=== PATIENT | male | born 1950 | race Two or more races ===

== ENCOUNTER 2017-04-15 18:16 | Inpatient (IN) | payer MEDICARE, OTHER ==
[2017-04-15] MEDS: levETIRAcetam 500 MG TAB PO SCH (22:06)
[2017-04-15] MEDS: SODIUM CHLORIDE 0.9% 1,000 ML IV SCH (22:44)
[2017-04-16] MEDS ORDERED: RX INFO: IV CONTRAST WAS GIVEN 1 EACH MISC MISCELLANE PRN (06:14)
[2017-04-16] MEDS ORDERED: ASPIRIN 81 MG CHEW PO SCH (06:18)
--- NOTE | 2017-04-16 07:46 | HP ---
DATE OF ADMISSION: 04/15/2017 PRESENTING COMPLAINT: Weakness in the arms and leg. HISTORY OF PRESENTING COMPLAINT: This is a 66-year-old patient who I saw yesterday evening in 403 bed 2. The patient was transferred from [facility] where he was found to have hemoglobin of 7.2. The patient has a chronic stable medical conditions include hypertension, seizure, osteoarthritis, the patient states that for over about close to about the patient has become weak and decreased feeling in the left leg, ( ) in the right leg. Also patient has decreased feeling in the right arm. He has been using a walker. He has been getting progressively weak. Denies any pain, denies any change in speech or swallowing. Patient also hemoglobin was found to be low and the patient does not remember any black stools. Hence the patient was transferred here for further work-up. The patient also lost control of his bowels and also lost weight from 154 to 143 in the past month. REVIEW OF SYSTEMS: CONSTITUTIONAL: Tired. HEENT: None. RESPIRATORY: None. CARDIOVASCULAR: No chest pain. GASTROINTESTINAL: None. GENITOURINARY: Some stress incontinence. Dermatological: None. HEMATOLOGICAL: None. LYMPHATICS: None. PSYCHIATRY: None. NEUROLOGICAL: As above. Past history of hypertension, seizures, osteoarthritis. PAST SURGICAL HISTORY: No surgery. SOCIAL HISTORY: The patient is living with his landlord, not able to take care of himself. 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 Patient for close to 50 years has smoked about a pack a day and now down to a few cigarettes a day. Does drink about 4 or 5 beers a day. Family history of angina and hypertension. HOME MEDICATIONS: 1. Catapres 0.1 mg a day. 2. Triamcinolone 2 sprays each nostril daily. 3. Zestril 20 mg p.o. daily. 4. Keppra 500 milligrams p.o. t.i.d. ALLERGIES: None. On examination, temperature 99.6, pulse 98, respirations 16, blood pressure 111/58, pulse ox 97% on room air. GENERAL APPEARANCE: Average build, sitting up, tired appearing. EYES: Pupils equal. Conjunctivae normal. HEENT: External appearance of nose and ears normal. Oral cavity normal. NECK: JVD is not raised. Mass not palpable. RESPIRATORY: Effort normal. LUNGS: Diminished breath sounds. CARDIOVASCULAR: First and second sounds normal. No edema. ABDOMEN: Soft, nontender. Liver and spleen not palpable. LYMPHATIC: No lymph nodes palpable in neck or axillae. PSYCHIATRY: Alert and oriented x3. Mood is normal. NEUROLOGICAL: The patient's power on the left leg is about 1/5. Reflexes increased compared to the right. On the right leg he is about 2.5. The patient slightly weak in the right arm compared to the left. MUSCULOSKELETAL: Evidence of osteoarthritis in the hands and knees. INVESTIGATIONS: Blood work will be sent off for CMV, CBC, TSH. ASSESSMENT: 1. This is a patient who presents with weakness over one month with weakness in the left leg and some weakness in right leg, right arm weakness. This could be cervical pathology or something more central. Hence, we will need a CT scan of the brain and the neck. 2. Essential hypertension. The patient blood pressure is running on the low side. We will stop patient's clonidine and cut back the dose of Vasotec. 3. Seizure disorder in a patient who drinks alcohol. 4. Primary osteoarthritis in multiple joints, bilateral. The patient has evidence of the same on physical examination. 5. Chronic nicotine dependence. Patient is a smoker. 6. Chronic alcohol dependence. Patient drinks at least 4 to 5 beers a day. PLAN: The patient will get a CT scan of the brain and the neck. We will consult neurology. For the ( ), we will consult GI, with a view to endoscopy. The patient was given a nicotine patch. Will do a chest x-ray. Also will check patient's thyroid status. Get transition social worker involved including PT/OT. Care was discussed with the patient. Copy to Dr. Suarez.
[2017-04-16] MEDS: LISINOPRIL 20 MG TAB PO SCH (08:23)
[2017-04-16] MEDS: levETIRAcetam 500 MG TAB PO SCH ×2 (08:23→23:47)
[2017-04-16] MEDS: FLUTICASONE 50MCG/SPRAY NASAL 16GM EA NOSTRIL SCH (08:24)
[2017-04-16] MEDS: SODIUM CHLORIDE 0.9% 1,000 ML IV SCH ×2 (08:24→17:52)
[2017-04-16] MEDS: ASPIRIN 81 MG CHEW PO SCH (08:24)
[2017-04-16] MEDS: ENOXAPARIN 40 MG/0.4 ML SYRINGE SQ SCH (08:24)
[2017-04-16] MEDS: NICOTINE 14MG/24HR PATCH TRANSDERM SCH (08:24)
[2017-04-16 08:48] LABS: Anisocytosis Slight; Basophils % (A) 0 %; CH 20.3; CHCM 29.9; Eosinophils % (A) 0 %; HCT 23.6 % (39.0-53.0); HDW 3.28; Hypochromasia Marked; Luc # (Auto) 0.16; Luc % (Auto) 1; Lymphocytes # (A) 0.7 k/uL (1.0-4.8); Lymphocytes % (A) 3 %; MCH 20.4 pg (25.0-35.0); MCHC 29.8 g/dL (31.0-37.0); MCV 68.4 fL (80.0-100.0); Mean Platelet Volume 6.9; Microcytosis Marked; Monocytes # (A) 0.6 k/uL (0-1.0); Monocytes % (A) 2 %; Neutrophils # (A) 23.2 k/uL (1.3-7.7); Neutrophils % (A) 94 %; RBC 3.45 m/uL (4.30-5.90); RDW 19.3 % (11.5-15.5); WBC 24.7 k/uL (3.8-10.6)
[2017-04-16] MEDS ORDERED: cloNIDine HCL 0.1 MG TAB PO SCH (09:00)
[2017-04-16 09:12] LABS: ALT 18 U/L (21-72); AST 15 U/L (17-59); Alkaline Phosphatase 118 U/L (38-126); Anion Gap 12 mmol/L; Blood Urea Nitrogen 7 mg/dL (9-20); Calcium 7.5 mg/dL (8.4-10.2); Carbon Dioxide 21 mmol/L (22-30); Chloride 98 mmol/L (98-107); Cholesterol 104 mg/dL (<200); Glucose 66 mg/dL (74-99); HDL Cholesterol 27 mg/dL (40-60); Non-African American GFR(MDRD) >60 (>60 ml/min/1.73 sqM); Potassium 3.1 mmol/L (3.5-5.1); Sodium 131 mmol/L (137-145); Total Bilirubin 0.8 mg/dL (0.2-1.3); Total Protein 5.3 g/dL (6.3-8.2); Triglycerides 81 mg/dL (<150)
--- NOTE | 2017-04-16 09:21 | P.CONS ---
History of Present Illness - Reason for Consult Consult date: 04/16/17 anemia Requesting physician: Refugio Aly - History of Present Illness 66-year-old gentleman patient of Dr. Suarez with a past medical history of EtOH abuse and still drinks alcohol daily, seizure disorder, hypertension, nicotine cigarette dependency. Patient requested for anemia. Patient was transferred from [facility] with 2-3 day history of lower leg weakness unable to walk. "I cannot take care of myself anymore". Patient has defecated brown colored stool on himself but not incontinent of urine. Denies fever, chills. Denies overt bleeding such as hematemesis hematochezia or melena. Chemistries from [facility] upon transfer indicated white count 26. Hemoglobin 7.3. MCV 65. Platelets 540. He went 9. Creatinine 0.7. AST 21. ALT 37. Alkaline phosphatase 120. Total bilirubin 0.7. Albumin 2.5. Ammonia less than 9. TSH 3.4. Folate 4.3. B12 855. INR 1.1. Upon review of medical records July 2016 hemoglobin 13.9. MCV 87. Denies abdominal pain, nausea, vomiting. Reports weight loss over the last few months but cannot quantify it at least 10 pounds. Present weight 55 kg. Weight July 2016 65 kilograms. Possible history of colonoscopy in the past if so more than 10 years ago. No history of EGD. CT brain cervical spine pending. Review of Systems Constitutional: Denies fever, chills, sweats, weight gain, or loss. HEENT: Negative for migraines, blurred vision or loss, earaches, drainage, tinnitus, oral mucosal lesions, dysphagia, or odynophagia. Cardiac: Hypertension. Negative for chest pain, arrhythmias, or palpitation. Respiratory: Negative for shortness of breath, hemoptysis, cough, or sputum production. Gastrointestinal: See HPI for pertinent findings. Genitourinary: Negative for hematuria, urgency, frequency, polyuria, dysuria, or penile discharge. Musculoskeletal: Negative for muscle aches, swelling, arthritis, and arthralgias. Neurologic: seizure disorder. Negative for stroke or TIA. Endocrine: Negative for thyroid problems. Skin: Negative for rash or itching. Psychiatric: Negative history for depression and anxiety All systems: negative (See HPI) Past Medical History Past Medical History: Hypertension, Seizure Disorder Additional Past Medical History / Comment(s): Seizures. PT STATED FOR PAST MONTH NO FEELING LT LEG(IT WOULD GO OUT ON HIM" NO FEELING RT ARM, LOST BOWEL CONTROL. WT DOWN FROM 154 TO 143 IN PAST MONTH. PT IS RT HAND DOMINANT. History of Any Multi-Drug Resistant Organisms: None Reported Additional Past Surgical History / Comment(s): "nose surgery" pt does not recall what surgery or why. Past Anesthesia/Blood Transfusion Reactions: No Reported Reaction Smoking Status: Current every day smoker - Past Family History Father Family Medical History: Chest Pain / Angina, Hypertension Mother Family Medical History: GERD/Reflux, GI Bleed Medications and Allergies Home Medications Medication Instructions Recorded Confirmed Type Lisinopril [Zestril] 20 mg PO DAILY 04/15/17 04/15/17 History Triamcinolone Acetonide [Nasacort] 2 spray EA NOSTRIL DAILY 04/15/17 04/15/17 History cloNIDine HCL [Catapres] 0.1 mg PO DAILY 04/15/17 04/15/17 History levETIRAcetam [Keppra] 500 mg PO BID 04/15/17 04/15/17 History Allergies Allergy/AdvReac Type Severity Reaction Status Date / Time No Known Allergies Allergy Verified 04/15/17 20:10 Physical Exam Vitals: Vital Signs Temp Pulse Resp BP Pulse Ox 04/16/17 07:00 99.9 F H 110 H 20 148/69 90 L 04/15/17 23:00 100.3 F H 94 16 107/51 94 L 04/15/17 20:00 100 04/15/17 19:28 99.6 F 98 16 111/58 97 Intake and Output 04/15/17 04/16/17 04/16/17 22:59 06:59 14:59 Output Total 200 525 Balance -200 -525 Output: Urine 200 525 Other: Voiding Method Urinal # Voids 1 2 Weight 55.5 kg General appearance: The patient is alert, oriented, in no acute distress. HET: Head is normocephalic and atraumatic. Pupils are equal and reactive. Oropharynx is clear without lesions. Neck: Supple without lymphadenopathy. Trachea midline. Heart: S1 S2. Regular rate and rhythm. Lungs: No crackles or wheezes are heard. Abdomen: Soft, nontender, nondistended with bowel sounds. No peritoneal signs. No palpable organomegaly or masses. Extremities: Normal skin color and turgor. No cyanosis, rash, ulceration, clubbing, or edema. Radial and pedal pulses are 2/4 bilaterally. Neurological: Moves lower extremities but poor strength 2/5 bilaterally. no edema. Rectal: Brown stool. No palpable masses. No active bleeding. Results CBC & Chem 7: 04/17/17 07:49 04/17/17 07:49 Assessment and Plan (1) Microcytic hypochromic anemia Narrative/Plan: 56-year-old gentleman with a history of long-standing alcoholism and seizure disorder presents the 2-3 day history of bilateral lower leg weakness unable to walk with new onset of microcytic hypochromic anemia suggestive of iron deficiency without overt bleeding. Status: Acute (2) History of alcoholism Status: Chronic (3) Lower extremity weakness Status: Acute (4) Seizures Status: Acute Plan: 1. Iron indices. Reticulocyte count. 2. Will plan EGD colonoscopy tentatively after review of CT had spinal cord neurology evaluation. 3. Light diet as tolerated. Monitor CBC closely. 4. Will follow closely with you. The cardio tech has discussed the risks, benefits and alternative therapies for the above-mentioned procedure and for both sedation/analgesia as well as necessary blood product administration, if indicated, as they pertain to this patient. The patient has indicated understanding and acceptance of the risks and procedures discussed. Thank you for this kind referral and the opportunity to participate in the care of your patient. This consultation was discussed with after Nasr. The impression and plan of care have been directed as dictated.
--- NOTE | 2017-04-16 10:20 | ECHOF ---
Referral Reason:poss thrombus MEASUREMENTS -------- HEIGHT: 167.6 cm WEIGHT: 55.3 kg BP: 107/51 IVSd: 1.6 cm (0.6 - 1.1) LVIDd: 3.1 cm (3.9 - 5.3) LVPWd: 1.0 cm (0.6 - 1.1) IVSs: 1.6 cm LVIDs: 1.4 cm LVPWs: 1.6 cm Ao Diam: 3.3 cm (2.0 - 3.7) AV Cusp: 1.9 cm (1.5 - 2.6) LA Diam: 3.2 cm (2.7 - 3.8) MV EXCURSION: 14.230 mm (> 18.000) MV EF SLOPE: 55 mm/s (70 - 150) EPSS: 0.2 cm MV E Brant: 1.04 m/s MV DecT: 98 ms MV A Brant: 1.02 m/s MV E/A Ratio: 1.02 RAP: 5.00 mmHg RVSP: 41.02 mmHg FINDINGS -------- Resting tachycardia (HR>100bpm). This was a technically good study. Overall left ventricular systolic function is normal with, an EF between 55 - 60 %. Mild asymmetric septal hypertrophy with septal thickness 1.3 - 1.5 cm. LVOT Obstruction with a max gradient of 22mmHg The right ventricle is normal in size and function. The left atrium is normal in size. The right atrium is normal in size. Aortic valve is trileaflet and is mildly thickened. The mitral valve leaflets are mildly thickened. There is trace mitral regurgitation. Mild tricuspid regurgitation present. There is mild pulmonary hypertension. The right ventricular systolic pressure, as measured by Doppler, is 41.02mmHg. Pulmonic valve appears structurally normal. The aortic root size is normal. Normal inferior vena cava with normal inspiratory collapse consistent with estimated right atrial pressure of 5 mmHg. The pericardium is normal. CONCLUSIONS -------- 1. Resting tachycardia (HR>100bpm). 2. The mitral valve leaflets are mildly thickened. 3. There is trace mitral regurgitation. 4. Mild tricuspid regurgitation present. 5. There is mild pulmonary hypertension. 6. The right ventricular systolic pressure, as measured by Doppler, is 41.02mmHg. 7. Pulmonic valve appears structurally normal. 8. The aortic root size is normal. 9. Normal inferior vena cava with normal inspiratory collapse consistent with estimated right atrial pressure of 5 mmHg. 10. The pericardium is normal. 11. This was a technically good study. 12. Overall left ventricular systolic function is normal with, an EF between 55 - 60 %. 13. Mild asymmetric septal hypertrophy with septal thickness 1.3 - 1.5 cm. 14. LVOT Obstruction with a max gradient of 22mmHg 15. The right ventricle is normal in size and function. 16. The left atrium is normal in size. 17. The right atrium is normal in size. 18. Aortic valve is trileaflet and is mildly thickened. GLOBAL MARKETING COORDINATOR: Shelly Mays RDCS
[2017-04-16 11:34] VITALS: BMI 19.7
--- NOTE | 2017-04-16 12:36 | US ---
EXAMINATION TYPE: US carotid duplex BILAT DATE OF EXAM: 04/16/2017 COMPARISON: NONE CLINICAL HISTORY: arm and leg weakness. EXAM MEASUREMENTS: RIGHT: Peak Systolic Velocity (PSV) cm/sec ----- Right CCA: 119.4 ----- Right ICA: 122.2 ----- Right ECA: 91.4 ICA/CCA ratio: 1.0 RIGHT: End Diastole cm/sec ----- Right CCA: 14.7 ----- Right ICA: 13.7 ----- Right ECA: 0.0 LEFT: Peak Systolic Velocity (PSV) cm/sec ----- Left CCA: 88.0 ----- Left ICA: 99.5 ----- Left ECA: 109.4 ICA/CCA ratio: 1.1 LEFT: End Diastole cm/sec ----- Left CCA: 8.9 ----- Left ICA: 27.4 ----- Left ECA: 0.0 VERTEBRALS (direction of flow): Right Vertebral: Antegrade Left Vertebral: Antegrade Severe atherosclerotic changes seen bilaterally, no significant velocity increases seen in bilateral ICA's IMPRESSION: No hemodynamic significant stenosis of the proximal internal carotid arteries bilaterall y by Doppler criteria, and indirect measurement of carotid stenosis. Atheromatous changes are present within the carotid arteries bilaterally. Consider follow-up.
[2017-04-16 14:21] LABS: Reticulocyte % 3.3 % (0.5-2.0)
[2017-04-16 14:45] LABS: Iron <10 ug/dL (49-181)
[2017-04-16 14:54] LABS: % Iron Saturation <5.1 % (20-50); Total Iron Binding Capacity 195 ug/dL (261-462)
--- NOTE | 2017-04-16 15:25 | CT ---
EXAMINATION TYPE: CT brain w con DATE OF EXAM: 04/16/2017 COMPARISON: Previous CT scan of the brain dated 04/15/2017 HISTORY: Right arm and left leg weakness for [address] DLP: 1012.70 mGycm Automated exposure control for dose reduction was used. CONTRAST: CT scan of the head is performed with IV Contrast, patient injected with 100 ml mL of Omnipaque 300. FINDINGS: There are mild, generalized changes of sulcal prominence and ventriculomegaly, compatible w ith atrophic change. There is mild diffuse periventricular white matter lucency, compatible with smal l vessel ischemic change. There is no acute focal lesion, mass effect or midline shift identified. I do not see evidence of intracranial blood. No abnormal enhancement is seen. There is chronic mucoperiosteal thickening involving the left maxillary sinus and to a lesser extent the right maxillary sinus. The mastoid air cells are clear. IMPRESSION: 1. NO ACUTE INTRACRANIAL ABNORMALITY. 2. MILD ATROPHIC CHANGE. 3. CHRONIC WHITE MATTER ISCHEMIC CHANGE. 4. MILD, CHRONIC MAXILLARY SINUS MUCOSAL DISEASE.
--- NOTE | 2017-04-16 15:48 | CT ---
EXAMINATION TYPE: CT cervical spine wo/w con DATE OF EXAM: 04/16/2017 COMPARISON: Previous exam 08/24/2016 HISTORY: Right arm and left leg weakness for [address] DLP: 537.00 mGycm. Automated Exposure Control for Dose Reduction was Utilized. TECHNIQUE: CT scan of the cervical spine is obtained without and with contrast, axial images are obt ained, sagittal and coronal reformatted images are also reviewed. FINDINGS: Cervical spine is visualized in its entirety from C1 through upper thoracic levels, demonst rates no evident fracture. There is anterolisthesis grade 1 C3-4, retrolisthesis grade 1 C4-5, C5-6 a nd C6-7. There is a spinal curvature. Prevertebral soft tissue appears within normal limits. The C1 -C2 articulation is within normal limits on the coronal images. Review of axial images shows: Multilevel spondylosis and loss of disc height present. C2-3: Left-sided foraminal encroachment is present. No significant central canal stenosis. Minimal po sterior broad-based disc bulge C3-4: Listhesis may contribute to cause some foraminal encroachment greater on the left, mild central canal stenosis. C4-5: Foraminal encroachment is present bilaterally right greater than left. Mild central canal steno sis. C5-6: Bilateral foraminal encroachment is significant due to uncovertebral joint hypertrophy and face t arthropathy change. Mild to moderate central stenosis. C6-7: Foraminal encroachment is present bilaterally. No significant central stenosis. There is multil evel facet arthropathy. MRIs of increased sensitivity to assess for disc herniations. Thyroid gland is felt within normal limits. Visualized lung apices are remarkable for extensive emphy sematous change. Atheromatous changes are present at the carotid bifurcations. Significant stenosis is thought present of the proximal internal carotid artery on the left. Inflammatory changes are present within the max illary sinuses. IMPRESSION: There is no acute fracture or dislocation evident in the cervical spine. Multilevel akilah inal encroachment, degenerative disc disease, facet arthropathy. Hemodynamic significant stenosis of the proximal internal carotid artery on the left is suspected. Emphysema
[2017-04-16] MEDS ORDERED: Potassium Replacement Protocol 1 EACH MISC MISCELLANE PRN (17:54)
[2017-04-16] MEDS: POTASSIUM CHLORIDE ER 20 MEQ TAB.ER PO SCH ×2 (18:14→20:36)
--- NOTE | 2017-04-16 22:07 | P.CNNES ---
History of Present Illness Consult date: 04/16/17 History of Present Illness: The patient is a 66-year-old right-handed male with history of weakness and difficulty walking. He reports that one week ago he fell and injured his right arm and since then he has had weakness in the right arm. He also experienced some bilateral leg weakness which got worse 4 days ago when he stood up from lying in bed and collapsed because both legs were weak. He did not come to the emergency room immediately but he didn't present to [place] emergency room today and was transferred to [facility]. At [facility] emergency room he had a CT of the brain which showed no acute intracranial abnormality mild atrophy and chronic white matter ischemic changes. The patient denies any numbness in his arms or legs. He denied any neck pain or back pain. His main complaint is inability to walk for the past 4 days and recurrent falls. He also complains of weakness in the right arm since he fell on it one week ago. The patient had a CT of the cervical spine today did not reveal any fracture or acute disc herniation. There was degenerative disc disease. Patient was admitted to the hospital with anemia. His hemoglobin was 7.2 areas as had a weight loss of over 10 pounds in the past month. As a history of alcohol abuse and seizure disorder. Review of Systems Constitutional: Reports as per HPI Eyes: denies blurred vision, denies pain Ears, nose, mouth and throat: Reports as per HPI Cardiovascular: Denies chest pain, Denies shortness of breath Respiratory: Denies cough Gastrointestinal: Denies abdominal pain, Denies diarrhea, Denies nausea, Denies vomiting Musculoskeletal: Denies myalgias Integumentary: Denies pruritus, Denies rash Neurological: Denies numbness, Denies weakness Psychiatric: Denies anxiety, Denies depression Endocrine: Denies fatigue, Denies weight change (Weight loss) Past Medical History Past Medical History: Hypertension, Seizure Disorder Additional Past Medical History / Comment(s): Seizures. PT STATED FOR PAST MONTH NO FEELING LT LEG(IT WOULD GO OUT ON HIM" NO FEELING RT ARM, LOST BOWEL CONTROL. WT DOWN FROM 154 TO 143 IN PAST MONTH. PT IS RT HAND DOMINANT. History of Any Multi-Drug Resistant Organisms: None Reported Additional Past Surgical History / Comment(s): "nose surgery" pt does not recall what surgery or why. Past Anesthesia/Blood Transfusion Reactions: No Reported Reaction Smoking Status: Current every day smoker - Past Family History Father Family Medical History: Chest Pain / Angina, Hypertension Mother Family Medical History: GERD/Reflux, GI Bleed Medications and Allergies Home Medications Medication Instructions Recorded Confirmed Type Lisinopril [Zestril] 20 mg PO DAILY 04/15/17 04/15/17 History Triamcinolone Acetonide [Nasacort] 2 spray EA NOSTRIL DAILY 04/15/17 04/15/17 History cloNIDine HCL [Catapres] 0.1 mg PO DAILY 04/15/17 04/15/17 History levETIRAcetam [Keppra] 500 mg PO BID 04/15/17 04/15/17 History Allergies Allergy/AdvReac Type Severity Reaction Status Date / Time No Known Allergies Allergy Verified 04/15/17 20:10 Physical Examination - Vital Signs Vital Signs: Vital Signs Temp Pulse Resp BP Pulse Ox 04/16/17 21:21 101.7 F H 04/16/17 15:37 20 04/16/17 15:00 99.3 F 90 20 131/64 95 04/16/17 07:00 99.9 F H 110 H 20 148/69 90 L 04/15/17 23:00 100.3 F H 94 16 107/51 94 L Intake and Output 04/16/17 04/16/17 04/16/17 06:59 14:59 22:59 Output Total 525 Balance -525 Output: Urine 525 Other: # Voids 2 1 Weight 55.5 kg Patient Weight 04/17/17 06:59 Weight 55.5 kg - Constitutional General appearance: disheveled, thin - EENT EENT: hearing intact, vision intact - Respiratory Respiratory: rales - Cardiovascular Cardiovascular: regular rate, normal S1, normal S2 - Neurologic Cranial nerve examination: PERRL, EOMI, VFF, V1/V2/V3 grossly intact, face symmetric, tongue midline Speech examination: intact Motor examination - right side: 1/5: hip flexors, knee extensors, 3/5: biceps, triceps, wrist flexion, wrist extension, dish stacker Motor examination - left side: 3/5: biceps, hip flexors, knee extensors, 4/5: triceps, wrist flexion, wrist extension Detailed sensory examination: intact, light touch Reflexes: 2+: bicep, knee - Musculoskeletal Musculoskeletal: decreased range of motion - Psychiatric Psychiatric: depressed Results - Laboratory Findings CBC and BMP: 04/16/17 08:14 04/16/17 08:14 Abnormal Lab Findings: Abnormal Labs 04/16/17 04/16/17 04/16/17 08:14 08:14 08:14 WBC 24.7 H RBC 3.45 L Hgb 7.0 L* Hct 23.6 L MCV 68.4 L MCH 20.4 L MCHC 29.8 L RDW 19.3 H Plt Count 515 H Neutrophils # 23.2 H Lymphocytes # 0.7 L Retic Count Sodium 131 L Potassium 3.1 L Carbon Dioxide 21 L BUN 7 L Creatinine 0.57 L Glucose 66 L Calcium 7.5 L Iron <10 L TIBC 195 L % Saturation <5.1 L AST 15 L ALT 18 L Total Protein 5.3 L Albumin 2.2 L HDL Cholesterol 27 L 04/16/17 08:14 WBC RBC Hgb Hct MCV MCH MCHC RDW Plt Count Neutrophils # Lymphocytes # Retic Count 3.3 H Sodium Potassium Carbon Dioxide BUN Creatinine Glucose Calcium Iron TIBC % Saturation AST ALT Total Protein Albumin HDL Cholesterol Assessment and Plan (1) Lower extremity weakness Status: Acute Code(s): R29.898 - OTH SYMPTOMS AND SIGNS INVOLVING THE MUSCULOSKELETAL SYSTEM (2) Microcytic hypochromic anemia Status: Acute Code(s): D50.9 - IRON DEFICIENCY ANEMIA, UNSPECIFIED (3) Alcohol abuse Status: Chronic Code(s): F10.10 - ALCOHOL ABUSE, UNCOMPLICATED (4) History of seizure disorder Status: Chronic Code(s): Z86.69 - PERSONAL HISTORY OF DIS OF THE NERVOUS SYS AND SENSE ORGANS (5) History of alcoholism Status: Chronic Code(s): F10.21 - ALCOHOL DEPENDENCE, IN REMISSION Plan: The patient is a 66-year-old man with history of subacute onset weakness in the legs after suffering a few falls. His CT of the brain and CT of the cervical spine were unremarkable. Recommend further evaluation with MRI of the cervical and lumbar spine. He is complaining of pain in the right shoulder and right knee we'll check x-rays. He has a history of seizure disorder. Will check Keppra level and EEG
[2017-04-16] MEDS: ACETAMINOPHEN TAB 325 MG TAB PO PRN (22:55)
--- NOTE | 2017-04-16 22:59 | P.PN ---
Progress Note - Text DATE OF SERVICE: 04/16/2017 PRESENTING COMPLAINT: Weakness in the arms and legs INTERVAL HISTORY: 66-year-old gentleman with weakness in the left leg and right leg and right arm. Continues to have weakness of said extremities. Sitting up in bed, eating his dinner. Appears comfortable. REVIEW OF SYSTEMS: Done for constitutional ,cardiovascular, GI, pulmonary with relevant findings as above. CURRENT MEDICATIONS Aspirin, Lovenox, Keppra, Zestril, nicotine patch. PHYSICAL EXAM VITAL SIGNS: Temperature 99.9 heart rate 110 respiratory rate 20 blood pressure 148/69 GENERAL APPEARANCE: Sitting in bed, not in distress. EYES: Pupils equal. Conjunctiva normal. NECK: JVD not raised. Mass not palpable. RESPIRATORY: Respiratory effort normal. Lungs clear to auscultation. CARDIOVASCULAR: First and second sounds normal. No edema. ABDOMEN: Soft. Liver and spleen not palpable. No tenderness. No mass palpable. PSYCHIATRY: Alert and oriented x3. Mood and affect normal. INVESTIGATIONS: White blood cell count 24.7, hemoglobin 7.0, platelet count 5:15, sodium 131, potassium 3.1, BUN 7 creatinine 0.57, total bilirubin 0.8, AST [address] of the brain :No acute intercranial abnormality CT of the cervical spine: No acute fracture dislocation evident in the cervical spine. Multilevel foraminal encroachment degenerative disc disease and facet arthropathy. Hemodynamic significant stenosis of the proximal internal carotid on the left is suspected. Carotid Doppler: No significant stenosis of the proximal internal carotid arteries bilaterally. ASSESSMENT: Weakness to left leg, right leg right arm. Unknown etiology possibly cervical pathology or more central, all imaging negative for an acute process Essential hypertension. Seizure disorder in a patient who drinks alcohol. Primary osteoarthritis of multiple joints bilateral. Chronic nicotine dependence patient is a smoker. Chronic alcohol dependence patient drinks at least 4-5 beers a day. Anemia secondary to alcohol use, hemoglobin 7.0 PLAN: We'll proceed with evaluation of an MRI of the cervical lumbar spine per neurology. Follow up on patient's thyroid status, iron studies, possible EGD with colonoscopy on Saturday. Discussed plan of care with patient at bedside. We'll follow closely. COLD MEAT CHEF statement: Patient was seen and examined by nurse practitioner Yudith Mendes and all elements of the case discussed with attending Dr. Aly
[2017-04-17] MEDS: SODIUM CHLORIDE 0.9% 1,000 ML IV SCH ×2 (06:33→15:02)
[2017-04-17] MEDS: LISINOPRIL 20 MG TAB PO SCH (07:57)
[2017-04-17] MEDS: levETIRAcetam 500 MG TAB PO SCH ×2 (07:57→21:51)
[2017-04-17] MEDS: NICOTINE 14MG/24HR PATCH TRANSDERM SCH (07:57)
--- NOTE | 2017-04-17 07:57 | XR ---
EXAMINATION TYPE: XR orbit pre-MRI foreign body DATE OF EXAM: 04/17/2017 COMPARISON: NONE HISTORY: Pre-MRI orbit TECHNIQUE: Three-view orbits FINDINGS: No metallic foreign bodies in or about the orbits is evident. Some mucosal thickening withi n the maxillary sinuses may be present. Septum appears midline. IMPRESSION: 1. No metallic foreign body to contraindicate MRI in or about the orbits.
[2017-04-17] MEDS: FLUTICASONE 50MCG/SPRAY NASAL 16GM EA NOSTRIL SCH (07:58)
[2017-04-17] MEDS: ENOXAPARIN 40 MG/0.4 ML SYRINGE SQ SCH (07:58)
[2017-04-17] MEDS: ASPIRIN 81 MG CHEW PO SCH (07:58)
--- NOTE | 2017-04-17 07:58 | XR ---
EXAMINATION TYPE: XR knee complete RT DATE OF EXAM: 04/17/2017 COMPARISON: NONE HISTORY: Pain and swelling right knee TECHNIQUE: Three-view right knee FINDINGS: There is a moderate joint effusion. No acute fractures are evident. Joint spaces are preser charanjit. IMPRESSION: 1. Moderate joint effusion.
--- NOTE | 2017-04-17 07:59 | XR ---
EXAMINATION TYPE: XR shoulder complete RT DATE OF EXAM: 04/17/2017 COMPARISON: NONE HISTORY: Pain TECHNIQUE: Shoulder examined in 3 FINDINGS: The humeral head articulates with the glenoid. The acromio-clavicular junction is normal. No acute fractures or dislocations are evident. A follow up study can be performed 7-10 days from acute trauma for continued pain. IMPRESSION: 1. Normal Shoulder
[2017-04-17 08:28] LABS: Anisocytosis Slight; Basophils % (A) 0 %; CH 20.4; CHCM 29.4; Eosinophils % (A) 0 %; HCT 25.3 % (39.0-53.0); HDW 3.32; HGB 7.3 gm/dL (13.0-17.5); Hypochromasia Marked; Luc # (Auto) 0.17; Luc % (Auto) 1; Lymphocytes # (A) 0.9 k/uL (1.0-4.8); Lymphocytes % (A) 4 %; MCH 20.1 pg (25.0-35.0); MCHC 28.8 g/dL (31.0-37.0); MCV 69.8 fL (80.0-100.0); Mean Platelet Volume 6.7; Microcytosis Marked; Monocytes # (A) 0.5 k/uL (0-1.0); Monocytes % (A) 2 %; Neutrophils % (A) 93 %; RBC 3.63 m/uL (4.30-5.90); RDW 19.5 % (11.5-15.5); WBC 22.6 k/uL (3.8-10.6); WBC (Perox) 23.09
[2017-04-17 08:44] LABS: ALT 22 U/L (21-72); AST 16 U/L (17-59); Alkaline Phosphatase 134 U/L (38-126); Anion Gap 9 mmol/L; Blood Urea Nitrogen 6 mg/dL (9-20); Calcium 7.6 mg/dL (8.4-10.2); Carbon Dioxide 24 mmol/L (22-30); Chloride 100 mmol/L (98-107); Glucose 94 mg/dL (74-99); Non-African American GFR(MDRD) >60 (>60 ml/min/1.73 sqM); Potassium 3.5 mmol/L (3.5-5.1); Sodium 133 mmol/L (137-145); Total Bilirubin 0.8 mg/dL (0.2-1.3); Total Protein 5.6 g/dL (6.3-8.2)
[2017-04-17] MEDS ORDERED: Potassium Replacement Protocol 1 EACH MISC MISCELLANE PRN (11:08)
--- NOTE | 2017-04-17 11:12 | P.PN ---
Subjective Principal diagnosis: Anemia 66-year-old male transferred from [facility] with lower extremity weakness unable to walk with incidental anemia. History of EtOH abuse. CT brain cervical spine reported no acute fracture or dislocation. No acute intracranial abnormality. No evidence of bleeding such as hematemesis hematochezia or melena. Denies abdominal pain. Hemoglobin 7.3. Objective - Vital Signs Vital signs: Vital Signs Temp 97.6 F 04/17/17 07:00 Pulse 90 04/17/17 07:00 Resp 24 04/17/17 07:00 BP 141/74 04/17/17 07:00 Pulse Ox 94 L 04/17/17 07:00 Intake & Output 04/16/17 04/17/17 04/17/17 18:59 06:59 18:59 Intake Total 625 Output Total 1000 Balance -375 Weight 55.5 kg Intake: Oral 625 Output: Urine 1000 Other: Voiding Method Urinal Urinal Incontinent Incontinent # Voids 1 2 - Exam General appearance: The patient is alert, oriented, in no acute distress. HET: Head is normocephalic and atraumatic. Pupils are equal and reactive. Oropharynx is clear without lesions. Neck: Supple without lymphadenopathy. Trachea midline. Heart: S1 S2. Regular rate and rhythm. Lungs: No crackles or wheezes are heard. Abdomen: Soft, nontender, nondistended with bowel sounds. No peritoneal signs. No palpable organomegaly or masses. Extremities: Normal skin color and turgor. No cyanosis, rash, ulceration, clubbing, or edema. Radial and pedal pulses are 2/4 bilaterally. Neurological: Moves lower extremities but poor strength 2/5 bilaterally. no edema. Rectal: Brown stool. No palpable masses. No active bleeding. - Labs CBC & Chem 7: 04/17/17 07:49 04/17/17 07:49 Labs: Abnormal Lab Results - Last 24 Hours (Table) 04/16/17 04/16/17 04/17/17 Range/Units 08:14 08:14 07:49 WBC (3.8-10.6) k/uL RBC (4.30-5.90) m/uL Hgb (13.0-17.5) gm/dL Hct (39.0-53.0) % MCV (80.0-100.0) fL MCH (25.0-35.0) pg MCHC (31.0-37.0) g/dL RDW (11.5-15.5) % Plt Count (150-450) k/uL Neutrophils # (1.3-7.7) k/uL Lymphocytes # (1.0-4.8) k/uL Retic Count 3.3 H (0.5-2.0) % Sodium 133 L (137-145) mmol/L BUN 6 L (9-20) mg/dL Creatinine 0.53 L (0.66-1.25) mg/dL Calcium 7.6 L (8.4-10.2) mg/dL Iron <10 L (49-181) ug/dL TIBC 195 L (261-462) ug/dL % Saturation <5.1 L (20-50) % AST 16 L (17-59) U/L Alkaline Phosphatase 134 H (38-126) U/L Total Protein 5.6 L (6.3-8.2) g/dL Albumin 2.3 L (3.5-5.0) g/dL 04/17/17 Range/Units 07:49 WBC 22.6 H (3.8-10.6) k/uL RBC 3.63 L (4.30-5.90) m/uL Hgb 7.3 L (13.0-17.5) gm/dL Hct 25.3 L (39.0-53.0) % MCV 69.8 L (80.0-100.0) fL MCH 20.1 L (25.0-35.0) pg MCHC 28.8 L (31.0-37.0) g/dL RDW 19.5 H (11.5-15.5) % Plt Count 539 H (150-450) k/uL Neutrophils # 21.0 H (1.3-7.7) k/uL Lymphocytes # 0.9 L (1.0-4.8) k/uL Retic Count (0.5-2.0) % Sodium (137-145) mmol/L BUN (9-20) mg/dL Creatinine (0.66-1.25) mg/dL Calcium (8.4-10.2) mg/dL Iron (49-181) ug/dL TIBC (261-462) ug/dL % Saturation (20-50) % AST (17-59) U/L Alkaline Phosphatase (38-126) U/L Total Protein (6.3-8.2) g/dL Albumin (3.5-5.0) g/dL Assessment and Plan (1) Microcytic hypochromic anemia Narrative/Plan: 56-year-old gentleman with a history of long-standing alcoholism and seizure disorder presents the 2-3 day history of bilateral lower leg weakness unable to walk with new onset of microcytic hypochromic anemia suggestive of iron deficiency without overt bleeding. Status: Acute (2) History of alcoholism Status: Chronic (3) Lower extremity weakness Status: Acute (4) Seizures Status: Acute Plan: 1. EGD colonoscopy tomorrow. Assessment and plan of care discussed with Dr. Acevedo
[2017-04-17] MEDS ORDERED: RX INFO: IV CONTRAST WAS GIVEN 1 EACH MISC MISCELLANE PRN (13:08)
[2017-04-17] MEDS ORDERED: PEG 3350-NA SULF,BICARB,CL/KCL 4,000 ML BOTTLE PO ONE (15:00)
[2017-04-17] MEDS: IOHEXOL 350 MG/ML 25 ML BOTTLE (ORAL USE) PO PRN ×2 (15:02→15:56)
--- NOTE | 2017-04-17 15:03 | MR ---
EXAMINATION TYPE: MR cspine/lspine wo con DATE OF EXAM: 04/17/2017 COMPARISON: CT cervical spine April 16, 2017 HISTORY: bilateral arm weakness and leg weakness per patient. TECHNIQUE: Multiplanar, multisequence imaging of the cervical and lumbar spine are performed without IV contrast. FINDINGS: Exam noted suboptimal by technologist due to significant patient motion despite multiple at tempts C-SPINE: FINDINGS: Sagittal images of the cervical spine show the craniocervical junction to appear within nor mal limits. The cervical and upper thoracic spinal cord shows generalized AP diameter narrowing at s everal levels in the cervical spine. There is persistent grade 1 retrolisthesis of C4 on C5. The marianela tebral body heights are normal. There is moderate multilevel anterior spurring. There is moderate dis c space narrowing C4-C5 and C5-C6 levels redemonstrated. The bone marrow signal intensity is within n ormal limits. Axial images at C2-C3 levels show posterior spur disc complex effacing anterior thecal sac with evelyn nal spurring causing mild bilateral neural foraminal narrowing. Axial images at C3-C4 level show spondylolisthesis with uncovertebral facet degenerative changes in p osterior disc herniation effacing anterior thecal sac up to ventral surface of spinal cord which is f lattened and AP diameter, some increased signal at this level is difficult to exclude on axial image 36. There is moderate to severe bilateral neural foraminal narrowing. Axial images at C4-C5 level shows posterior and marginal spurring with central disc protrusion effaci ng anterior thecal sac, there is flattening of ventral surface spinal cord with moderate to advanced bilateral neural foraminal narrowing. Some increased signal in the spinal cord at this level cannot b e excluded near axial image 29. Axial images at C5-C6 level show uncovertebral facet degenerative changes bilaterally with marginal s purring causing advanced bilateral neural foraminal narrowing there is central disc protrusion effaci ng anterior thecal sac. This extends to ventral surface of spinal cord. Axial images at C6-C7 level show uncovertebral facet degenerative changes bilaterally and marginal sp urring causing moderate to advanced bilateral neural foraminal narrowing. There is right paracentral disc protrusion effacing anterolateral thecal sac. Axial images at C7-T1 level are felt within normal limits. IMPRESSION: Suboptimal study with grade 1 retrolisthesis C4 on C5 redemonstrated. There are multileve l degenerative changes seen with significant multilevel spinal canal effacement or stenosis most prom inent C3-C4 C4-C5 levels where myelomalacia cannot be excluded. L-SPINE: Sagittal images of the lumbar spine show vertebral body heights and alignment to appear satisfactory. Multilevel disc desiccation is present. There is mild disc space narrowing L4-L5 level there is mode rate to severe posterior disc spur is narrowing L5-S1 level. Posterior spur disc complexes noted on s agittal images. Posterior disc herniation L4-L5 level as seen on sagittal images. There is mild to mo derate multilevel anterior spurring The conus medullaris is normal in position and signal ending at L1-L2 level. The bone marrow signal intensity is overall somewhat heterogeneous. Axial images at T12-L1, L1-L2, and L2-L3 levels are felt within normal limits. Axial images at the L3-L4 level shows mild broad disc bulge and mild facet degenerative changes bilat erally. There is some effacement the posterior lateral thecal sac. There is mild bilateral anterior i nferior neural foraminal narrowing seen. Axial images at L4-L5 level show moderate to severe broad disc bulge and moderate facet degenerative changes and ligamentum flavum hypertrophy contributing to spinal canal stenosis seen best on axial im age 12. There is moderate to severe left and mild right-sided neural foraminal narrowing. This is see n best on sagittal image 3. Axial images at L5-S1 level show moderate broad disc bulge and mild/moderate facet degenerative hemphill es bilaterally. There is some effacement of the anterior thecal sac. There is moderate to severe bila teral neural foraminal narrowing. Encroachment on both L5 nerves is suspected seen on sagittal images 3 left side and more prominent on sagittal image 12 right side respectively. IMPRESSION: Multilevel degenerative changes in the lower lumbar spine as detailed above. Bilateral L5 effacement is felt present. Spinal canal stenosis L4-L5 level is noted.
--- NOTE | 2017-04-17 16:17 | PN ---
DATE OF SERVICE: 04/16/2017 ATTENDING NOTE: This patient was seen and examined by me on 04/16/17. I reviewed the note of my nurse practitioner Ms. Mendes, discussed and reviewed. Additional findings below. This patient presented with left leg weakness and right leg weakness, right arm weakness. Neurological workup is in place. Lying in bed. Trying to feed himself, though weak in the right arm. Neurological status has not changed. INVESTIGATIONS: Cervical spine did show multilevel ( ) I am not sure if that actually explains his findings. CT scan of the brain shows some chronic changes. ASSESSMENT: Patient has left leg weakness; greater on the left compared to the right; right arm weakness associated with cervical spine changes. Neurological workup is in place. Carotid Doppler was unremarkable. Two-D echo was unremarkable. PLAN: Follow with neurological workup. I am not sure if cervical spine findings explain patient's manifestation. Patient has also been losing weight; decreased appetite. Will order a CT scan of the abdomen, chest and pelvis to also look for malignancy.
--- NOTE | 2017-04-17 17:14 | CT ---
EXAMINATION TYPE: CT ChestAbdPelvis w con DATE OF EXAM: 04/17/2017 COMPARISON: NONE HISTORY: Patient complains of bilateral leg weakness. CT DLP: 1148 mGycm Automated exposure control for dose reduction was used. CONTRAST: CT scan of the chest, abdomen and pelvis is performed with Oral Contrast and with IV Contrast, patien t injected with 100 mL of Omnipaque 300. FINDINGS: There is diffuse moderate pulmonary emphysema. There is a bilateral pleural effusion. There is patchy infiltrate and atelectasis at the lung bases. There is no pericardial effusion. There is a large 6 c m rounded mass in the subcarinal region. There is displacement posteriorly of the thoracic esophagus. It is not clear if the masses involving the esophagus. Thoracic aorta is atheromatous. There is a 1. 7 cm right bronchial lymph node. There is a 1 cm left bronchial lymph node. Liver shows no focal defect. Spleen appears normal. There is no pancreatic mass. There is a 4.5 cm ri ght adrenal mass with mixed density. There is a 2.5 cm left adrenal mass with similar appearance. Kid neys show satisfactory contrast opacification. There is no hydronephrosis. Bile ducts are not dilated . Gallbladder appears normal. Bladder distends smoothly. There is mild ascites with mild fluid in the pelvis and in the paracolic gutters. There is no sign of free air. There is a small air bubble in th e subcutaneous fat over the anterior mid abdomen that could be an injection site. Abdominal aorta is atheromatous. There is no sign of a bowel obstruction. The appendix appears normal. There is a 5 x 2.5 cm destructive lesion involving the right iliac bone adjacent to the sacroiliac tana int. There is a 1 cm lucency in the mid right iliac bone. There is a similar 5 mm lucency in the post erior lateral right iliac bone. There is ligamentum flavum thickening and facet arthropathy with resultant moderately severe spinal s tenosis at L4-5. There is mild relative spinal stenosis at L3-4. There is a 1 cm cortical cyst on the posterior left kidney. I see no definite retroperitoneal adenopathy. I see no intestinal mass. Bladd er distends smoothly.: IMPRESSION: Large subcarinal mass with pleural effusions and basilar pulmonary infiltrates and atelec tasis. Severe emphysema. Mild bronchial adenopathy. Bilateral adrenal masses. Large destructive lesio n in the right iliac bone. 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 There is spinal stenosis in the lower lumbar spine that is quite severe at L4-5 and probably accounts for leg weakness history. Abdominal mild ascites.
--- NOTE | 2017-04-17 19:29 | P.PN ---
Subjective Principal diagnosis: Difficulty walking The patient is a 66-year-old man who presented to the hospital with difficulty walking for the past 2 weeks. He reports that 2 weeks ago he experienced weakness and was laying in bed for many days. His right arm as been giving him trouble with pain and weakness. He has also been having weakness in the right leg and pain in the right knee. He had an x-ray of his right shoulder today which did not reveal any fracture. He had an x-ray of the right knee which showed a fusion. He had an MRI of the cervical spine which showed grade 1 retrolisthesis C4 on C5 and multilevel degenerative changes: He had an MRI of the lumbar spine which showed multilevel degenerative changes as well as bilateral L5 effacement and spinal canal stenosis patient reports she is doing about the same. Had no appetite and has had a weight loss and anemia which is being worked up. Objective - Vital Signs Vital signs: Vital Signs Temp 100.5 F H 04/17/17 15:00 Pulse 102 H 04/17/17 15:00 Resp 24 04/17/17 15:00 BP 140/71 04/17/17 15:00 Pulse Ox 93 L 04/17/17 15:00 Intake & Output 04/17/17 04/17/17 04/18/17 06:59 18:59 06:59 Intake Total 625 Output Total 1000 Balance -375 Intake: Oral 625 Output: Urine 1000 Other: Voiding Method Urinal Urinal Incontinent Incontinent # Voids 2 3 - EENT Eyes: Present: EOMI, PERRLA ENT: Present: hearing grossly normal - Neck Neck: Present: normal ROM - Respiratory Respiratory: bilateral: CTA - Cardiovascular Rhythm: regular - Neurologic Neurologic Comment(s): Mental status he was awake alert and oriented he answered questions appropriately there is no aphasia or dysarthria Cranial nerves II through XII were grossly intact Motor examination revealed minimal weakness in the right upper extremity with some improvement since yesterday. Also right leg weakness continues. He was able to lift his left leg up against gravity to the count of 7. He was doing better with the strength on the left side today. Deep tendon reflexes were 2 on the right and 2+ on the left knee. Sensory exam intact to light touch Neurologic: Present: CNII-XII intact - Musculoskeletal Musculoskeletal: Present: generalized weakness, right sided weakness - Psychiatric Psychiatric: Present: A&O x's 3 - Labs CBC & Chem 7: 04/17/17 07:49 04/17/17 07:49 Labs: Abnormal Lab Results - Last 24 Hours (Table) 04/17/17 04/17/17 Range/Units 07:49 07:49 WBC 22.6 H (3.8-10.6) k/uL RBC 3.63 L (4.30-5.90) m/uL Hgb 7.3 L (13.0-17.5) gm/dL Hct 25.3 L (39.0-53.0) % MCV 69.8 L (80.0-100.0) fL MCH 20.1 L (25.0-35.0) pg MCHC 28.8 L (31.0-37.0) g/dL RDW 19.5 H (11.5-15.5) % Plt Count 539 H (150-450) k/uL Neutrophils # 21.0 H (1.3-7.7) k/uL Lymphocytes # 0.9 L (1.0-4.8) k/uL Sodium 133 L (137-145) mmol/L BUN 6 L (9-20) mg/dL Creatinine 0.53 L (0.66-1.25) mg/dL Calcium 7.6 L (8.4-10.2) mg/dL AST 16 L (17-59) U/L Alkaline Phosphatase 134 H (38-126) U/L Total Protein 5.6 L (6.3-8.2) g/dL Albumin 2.3 L (3.5-5.0) g/dL Assessment and Plan (1) Lower extremity weakness Status: Acute Code(s): R29.898 - [facility] SYMPTOMS AND SIGNS INVOLVING THE MUSCULOSKELETAL SYSTEM (2) Microcytic hypochromic anemia Status: Acute Code(s): D50.9 - IRON DEFICIENCY ANEMIA, UNSPECIFIED (3) Alcohol abuse Status: Chronic Code(s): F10.10 - ALCOHOL ABUSE, UNCOMPLICATED (4) History of seizure disorder Status: Chronic Code(s): Z86.69 - PERSONAL HISTORY OF DIS OF THE NERVOUS SYS AND SENSE ORGANS (5) History of alcoholism Status: Chronic Code(s): F10.21 - ALCOHOL DEPENDENCE, IN REMISSION Plan: The patient is a 66-year-old man who presents the hospital with generalized weakness weight loss and anemia. He has had difficulty walking. He has had recurrent falls at home. He has severe arthritis. He has degenerative disc disease. On examination today he is moving his left leg better than yesterday. He is able to lift it up against gravity. He is able to move his right arm slightly better today. He continues to be weak in the right leg and is unable to flex at the knee due to pain in the knee. He does have an effusion in that joint. He does have some disc disease in his back and recommend orthopedic evaluation for that
[2017-04-17] MEDS: ACETAMINOPHEN TAB 325 MG TAB PO PRN (23:47)
[2017-04-18] MEDS: SODIUM CHLORIDE 0.9% 1,000 ML IV SCH ×2 (03:12→09:40)
[2017-04-18 07:48] VITALS: BP 146/73; PULSE 82; RESP 18; TEMP 97.9
[2017-04-18] MEDS: ASPIRIN 81 MG CHEW PO SCH ×2 (08:08→09:24)
[2017-04-18 08:45] LABS: Anisocytosis Slight; Basophils % (A) 0 %; CH 20.3; CHCM 29.2; Eosinophils # (A) 0.1 k/uL (0-0.7); Eosinophils % (A) 0 %; HCT 25.5 % (39.0-53.0); HDW 3.28; HGB 7.3 gm/dL (13.0-17.5); Hypochromasia Marked; Luc # (Auto) 0.12; Luc % (Auto) 1; Lymphocytes # (A) 0.9 k/uL (1.0-4.8); Lymphocytes % (A) 6 %; MCH 20.2 pg (25.0-35.0); MCHC 28.7 g/dL (31.0-37.0); MCV 70.2 fL (80.0-100.0); Mean Platelet Volume 6.8; Microcytosis Marked; Monocytes # (A) 0.4 k/uL (0-1.0); Monocytes % (A) 3 %; Neutrophils # (A) 12.8 k/uL (1.3-7.7); Neutrophils % (A) 90 %; RBC 3.62 m/uL (4.30-5.90); RDW 19.7 % (11.5-15.5); WBC 14.2 k/uL (3.8-10.6)
[2017-04-18 08:57] LABS: Anion Gap 8 mmol/L; Blood Urea Nitrogen 5 mg/dL (9-20); Calcium 7.3 mg/dL (8.4-10.2); Carbon Dioxide 24 mmol/L (22-30); Chloride 101 mmol/L (98-107); Glucose 92 mg/dL (74-99); Non-African American GFR(MDRD) >60 (>60 ml/min/1.73 sqM); Potassium 3.2 mmol/L (3.5-5.1); Sodium 133 mmol/L (137-145)
--- NOTE | 2017-04-18 09:16 | P.PN ---
Subjective Date of service 04/17/2017. Progress note being dictated for Dr. Thomson. Interval history: This is a 66-year-old gentleman admitted with bilateral lower extremity weakness and right arm weakness, anemia and multiple other medical issues. Radiology studies in progress, MRI pending. complains of right shoulder and right knee pain. Right knee x-ray reporting no acute fractures, moderate joint effusion. Preliminary MRI orbit x-ray reporting no metallic foreign body to contraindicate MRI. right shoulder x-ray reporting normal shoulder , no acute fractures or dislocations. CT of chest,abdomen and pelvis pending. Hemoglobin 7.3,no signsor symptoms of bleeding. Evaluated by GI and patient is scheduled for both EGD and colonoscopy tomorrow. denies chest pain, palpitations or increasing shortness of breath. evaluated by neurology with neuro workup in progress. Carotid Doppler reported no hemodynamic significant stenosis, echo reporting normal EF of 55-60% , mild pulmonary hypertension , mild asymmetric septal hypertrophy ,LVOT obstruction. CT of brain and cervical spine unremarkable; multilevel foraminal encroachment , degenerative disc disease, facet arthropathy. Objective - Vital Signs Vital signs: Vital Signs Temp 97.6 F 04/17/17 07:00 Pulse 90 04/17/17 07:00 Resp 24 04/17/17 07:00 BP 141/74 04/17/17 07:00 Pulse Ox 94 L 04/17/17 07:00 Intake & Output 04/16/17 04/17/17 04/17/17 18:59 06:59 18:59 Intake Total 625 Output Total 1000 Balance -375 Weight 55.5 kg Intake: Oral 625 Output: Urine 1000 Other: Voiding Method Urinal Urinal Incontinent Incontinent # Voids 1 2 - Exam PHYSICAL EXAM: VITAL SIGNS: As above GENERAL: [ sitting up in bed, no acute distress] HEENT: [Pupils equal conjunctiva normal. no conjunctival pallor. oral mucosa moist] NECK: [Supple, no JVD] RESPIRATORY EFFORT:[ normal] LUNGS: [ diminished, no wheezes rhonchi or crackles.] CARDIOVASCULAR[ regular S1 and S2, no murmurs rubs or gallops, no edema] GI: [Abdomen soft, nontender, positive bowel sounds.no palpable mass. No guarding, no rigidity.] PSYCH: [Alert and oriented -3, mood and affect normal.] NEURO/MUSCULOKELETAL: bilateral hands and knees osteoarthritis present. bilateral lower extremity weakness 2/5, right arm weakness-Limited range of motion. - Labs CBC & Chem 7: 04/17/17 07:49 04/17/17 07:49 Labs: Abnormal Lab Results - Last 24 Hours (Table) 04/17/17 04/17/17 Range/Units 07:49 07:49 WBC 22.6 H (3.8-10.6) k/uL RBC 3.63 L (4.30-5.90) m/uL Hgb 7.3 L (13.0-17.5) gm/dL Hct 25.3 L (39.0-53.0) % MCV 69.8 L (80.0-100.0) fL MCH 20.1 L (25.0-35.0) pg MCHC 28.8 L (31.0-37.0) g/dL RDW 19.5 H (11.5-15.5) % Plt Count 539 H (150-450) k/uL Neutrophils # 21.0 H (1.3-7.7) k/uL Lymphocytes # 0.9 L (1.0-4.8) k/uL Sodium 133 L (137-145) mmol/L BUN 6 L (9-20) mg/dL Creatinine 0.53 L (0.66-1.25) mg/dL Calcium 7.6 L (8.4-10.2) mg/dL AST 16 L (17-59) U/L Alkaline Phosphatase 134 H (38-126) U/L Total Protein 5.6 L (6.3-8.2) g/dL Albumin 2.3 L (3.5-5.0) g/dL Assessment and Plan Plan: 1. [ Bilateral lower extremity weakness, right arm weakness, possible cervical pathology]. Patient states he fell and landed on his right side [address] pending. 2. [ Anemia, microcytic,workup in progress]. 3. Right knee moderate joint effusion 3. [ Seizure disorder in a patient with chronic alcohol dependence, drinks 4-5 4. [ Primary osteoarthritis, multiple joints, bilateral]. 5. [ Chronic nicotine dependence]. Plan: Continue on current medication regime ,monitoring and symptomatic treatment. As mentioned above evaluated by GI and scheduled for both EGD and colonoscopy tomorrow. Close monitoring of CBC with repeat labs in a.m. smoking and alcohol cessation readdressed. orthopedics consulted regarding right knee effusion. CT of chest abdomen and pelvis pending. PT/OT. prognosis guarded given multiple complex medical issues. further recommendations to follow. The impression and plan of care has been dictated as directed. : I performed a H&P examination of this patient and discussed the same with the dictator. I agree with the dictator's note. Any additional findings/opinions/ etc. will be noted.
[2017-04-18] MEDS: NICOTINE 14MG/24HR PATCH TRANSDERM SCH (09:19)
--- NOTE | 2017-04-18 09:19 | PN ---
DATE OF SERVICE: 04/17/2017 This 62 -year-old gentleman admitted with weakness, had cervical spine MRI which showed multilevel degenerative joint disease and spinal canal stenosis at L4-5 was also noted. The patient also had a chest, abdomen and pelvis CT also which showed large subcarinal mass with a pleural effusion and bibasilar pulmonary infiltrates and severe emphysema as well. Abdominal ascites also noted. Seen and evaluated the patient along with nurse practitioner. Please refer to the nurse practitioner notes documented as a scribe for further information. I would recommend hematology/oncology evaluation, pulmonary evaluation also. Guarded prognosis. Further recommendations to follow.
[2017-04-18] MEDS: levETIRAcetam 500 MG TAB PO SCH (09:20)
[2017-04-18] MEDS: FLUTICASONE 50MCG/SPRAY NASAL 16GM EA NOSTRIL SCH (09:20)
[2017-04-18] MEDS: LISINOPRIL 20 MG TAB PO SCH (09:20)
[2017-04-18 09:37] LABS: ALT 19 U/L (21-72); AST 18 U/L (17-59); Alkaline Phosphatase 132 U/L (38-126); Total Bilirubin 0.7 mg/dL (0.2-1.3); Total Protein 5.1 g/dL (6.3-8.2)
--- NOTE | 2017-04-18 10:07 | P.PN ---
Subjective Principal diagnosis: Anemia 66-year-old male transferred from [facility] with lower extremity weakness unable to walk with incidental anemia. History of EtOH abuse. CT brain cervical spine reported no acute fracture or dislocation. No acute intracranial abnormality. No evidence of bleeding such as hematemesis hematochezia or melena. Denies abdominal pain. Hemoglobin 7.3. scheduled for EGD colonoscopy today for evaluation anemia however patient did not consume his bowel prep. nursing reports brown bowel movements. Objective - Vital Signs Vital signs: Vital Signs Temp 97.9 F 04/18/17 07:00 Pulse 82 04/18/17 07:00 Resp 18 04/18/17 07:00 BP 146/73 04/18/17 07:00 Pulse Ox 95 04/18/17 07:00 Intake & Output 04/17/17 04/18/17 04/18/17 18:59 06:59 18:59 Intake Total 1000 Output Total 800 200 Balance 200 -200 Intake: Oral 1000 Output: Urine 800 200 Other: Voiding Method Urinal Urinal Incontinent Incontinent # Voids 3 # Bowel Movements 1 1 - Exam General appearance: The patient is alert, oriented, in no acute distress. HET: Head is normocephalic and atraumatic. Pupils are equal and reactive. Oropharynx is clear without lesions. Neck: Supple without lymphadenopathy. Trachea midline. Heart: S1 S2. Regular rate and rhythm. Lungs: No crackles or wheezes are heard. Abdomen: Soft, nontender, nondistended with bowel sounds. No peritoneal signs. No palpable organomegaly or masses. Extremities: Normal skin color and turgor. No cyanosis, rash, ulceration, clubbing, or edema. Radial and pedal pulses are 2/4 bilaterally. Neurological: Moves lower extremities but poor strength 2/5 bilaterally. no edema. Rectal: Brown stool. No palpable masses. No active bleeding. - Labs CBC & Chem 7: 04/18/17 08:01 04/18/17 08:01 Labs: Abnormal Lab Results - Last 24 Hours (Table) 04/18/17 04/18/17 Range/Units 08:01 08:01 WBC 14.2 H (3.8-10.6) k/uL RBC 3.62 L (4.30-5.90) m/uL Hgb 7.3 L (13.0-17.5) gm/dL Hct 25.5 L (39.0-53.0) % MCV 70.2 L (80.0-100.0) fL MCH 20.2 L (25.0-35.0) pg MCHC 28.7 L (31.0-37.0) g/dL RDW 19.7 H (11.5-15.5) % Plt Count 488 H (150-450) k/uL Neutrophils # 12.8 H (1.3-7.7) k/uL Lymphocytes # 0.9 L (1.0-4.8) k/uL Sodium 133 L (137-145) mmol/L Potassium 3.2 L (3.5-5.1) mmol/L BUN 5 L (9-20) mg/dL Creatinine 0.48 L (0.66-1.25) mg/dL Calcium 7.3 L (8.4-10.2) mg/dL Assessment and Plan (1) Microcytic hypochromic anemia Narrative/Plan: 56-year-old gentleman with a history of long-standing alcoholism and seizure disorder presents the 2-3 day history of bilateral lower leg weakness unable to walk with new onset of microcytic hypochromic anemia suggestive of iron deficiency without overt bleeding. Status: Acute (2) History of alcoholism Status: Chronic (3) Lower extremity weakness Status: Acute (4) Seizures Status: Acute Plan: 1. EGD colonoscopy rescheduled for tomorrow afternoon. Clear liquid diet through breakfast tomorrow. continue to monitor CBC closely. Assessment and plan of care discussed with Dr. Acevedo.
[2017-04-18] MEDS ORDERED: Potassium Replacement Protocol 1 EACH MISC MISCELLANE PRN (10:30)
--- NOTE | 2017-04-18 11:20 | NM ---
EXAMINATION TYPE: NM bone scan whole body DATE OF EXAM: 04/18/2017 COMPARISON: NONE HISTORY: Bilateral leg weakness Delayed whole-body scanning was performed following the injection of 27.5 mCi Tc 99m MDP. Images acq uired 3 hours post injection. FINDINGS: There is an abnormal distribution of uptake along the cortical surfaces of the femurs as we ll as the tibias bilaterally. There is also increased uptake in the distal radius and ulna bilaterall y and the proximal radius bilaterally. There is some increased activity in the right sacrum. There is increased activity in the first MTP joints bilaterally. There is increased activity in the posterior aspect of the mid cervical spine. IMPRESSION: 1. I COULD NOT EXCLUDE METASTATIC DISEASE. 2. PATTERN OF DISTRIBUTION MORE RESEMBLES HYPERTROPHIC OSTEOARTHROPATHY.
[2017-04-18] MEDS: POTASSIUM CHLORIDE 10 MEQ, LIDOCAINE 2% INJ 10 MG in SODIUM CHLORIDE 0.9% 100 ML IV SCH ×2 (11:25→13:24)
[2017-04-18] MEDS: POTASSIUM CHLORIDE ER 20 MEQ TAB.ER PO SCH ×2 (11:25→13:24)
--- NOTE | 2017-04-18 13:00 | DS ---
DATE OF ADMISSION: 04/15/2017 DATE OF DISCHARGE: FINAL DIAGNOSES: 1. Bilateral leg weakness and arm weakness, possible cervical myelopathy, rule out spinal cord compression. 2. Subcarinal mass, to rule out lung malignancy. 3. Possible right iliac erosion, rule out metastatic malignancy. 4. Right knee effusion. 5. Seizure disorder history. 6. History of EtOH. 7. Degenerative joint disease. 8. History of nicotine dependence. 9. Increased WBC. 10. Normocytic anemia, rule out gastrointestinal bleed. 11. Hyponatremia. 12. Mild hypokalemia. 13. Hypoalbuminemia with mild to moderate protein calorie malnutrition. 14. FULL CODE. DISCHARGE DISPOSITION: The patient will be transferred to [facility] in stable condition with guarded prognosis. HISTORY OF PRESENT ILLNESS: This 66-year-old gentleman with a past medical history of multiple medical problems as mentioned earlier being followed by Dr. Viktor Suarez in the outpatient setting, admitted with progressive weakness of both lower legs and right arm about 10 to 15 days duration. The patient was evaluated along with neurology and evaluation showed possible cervical spinal cord compression or myelopathy and also evidence of possible malignancy with subcarinal mass and erosion of the right iliac area. The patient had significant weakness of the lower legs. Neurology recommended transfer and we discussed the case with [facility] medical team and will be transferred in stable condition with guarded prognosis. The patient also had hemoglobin of 7, etiology uncertain. No active bleeding or further drop in hemoglobin at the hospital, which is stable at 7.3. The current medications are: 1. Tylenol p.r.n. 2. Aspirin 81 mg daily. 3. Keppra 500 mg p.o. b.i.d. 4. Zestril 20 mg daily. 5. Habitrol 14 daily. 6. Potassium replacement and IV fluids
--- NOTE | 2017-04-18 16:24 | CONS ---
DATE OF CONSULTATION: A 66-year-old male who was transferred down from [facility]. He had a number of different issues going on including anemia with hemoglobin of 7.2. He also apparently complaining of significant weakness. The patient apparently has really not been out of bed very much. The patient has a history of underlying hypertension, seizure disorder, DJD. The patient is currently being evaluated for gastrointestinal bleeding. The patient may have a colonoscopy, EGD today. In addition, we were consulted primarily because of a subcarinal mass. This could be a lymph node enlargement and/or lymphoma. Anyway, the patient may be transferred to [facility] according to the nurse. Apparently, neurology wants to transfer him there for generalized weakness. Therefore, I may not end up evaluating the subcarinal mass. The patient is a very poor historian. Not much can be obtained from him. He is not receiving any supplemental oxygen. He denies any difficulty breathing, coughing, wheezing, shortness of breath, phlegm production, or hemoptysis. His medical history includes that of hypertension, seizure disorder, DJD. Surgical history is unremarkable. Social history is positive for 50 years of tobacco use, about a pack a day. He does drink 4 to 5 beers a day. Family history is positive for angina and hypertension. Home medications included Catapres, triamcinolone to the nasal membranes, Zestril and Keppra. ALLERGIES: Denied. Again, not a particularly good historian. REVIEW OF SYSTEMS: CONSTITUTIONAL: Weakness. NEUROLOGIC: Seizure disorder. HEENT: Negative. CARDIOVASCULAR: Negative. PULMONARY: Negative. GI: Negative. : Negative. RHEUMATOLOGICAL/IMMUNOLOGIC: Negative. ENDOCRINOLOGIC/DERMATOLOGIC: Negative. Current vital signs include a temperature 97.9, heart rate 82, respiratory rate 18, blood pressure 146/73, room-air saturation 95%. Appears in no acute distress. HEENT: Unremarkable. Mucous membranes are moist. No oral lesions. Neck is supple. Full range of motion. No adenopathy or thyromegaly. Neck veins are flat. Cardiovascular examination reveals regular rhythm and rate. Heart rate is about 90 beats per minute. S1, S2 normal. No distinct murmur. Lungs reveal relatively clear breath sounds. No wheezes, rhonchi. No crackles. Slight prolongation on forced maneuver. Suggesting the possibility of underlying COPD. Abdomen is soft. Bowel sounds are heard. Extremities are intact. No cyanosis, clubbing, or edema. Skin without rash. Neurological examination is difficult because the patient is not cooperative. Labs are reviewed. White count 14.2, hemoglobin 7.3, hematocrit 25.5, platelet count 448,000. Sodium 133, potassium 3.2, chloride 101, CO2 of 24, BUN 5 and 0.48. The rest of the labs are reviewed. TSH is normal. CT scan of the chest, abdomen and pelvis was done yesterday and shows evidence of large subcarinal mass with pleural effusions and basilar pulmonary infiltrates and atelectasis. There is some emphysematous changes and some bronchial adenopathy. There is also bilateral adrenal masses. There is a large destructive lesion in the right iliac bone. All this would suggest the possibility of a primary lung cancer with metastasis. This might be consistent with small cell carcinoma. The rest of the findings are reviewed. Medications are reviewed. He is on Tylenol, aspirin and Lovenox, Flonase nasal spray, Keppra, lisinopril, nicotine patch, potassium, chloride, and an IV. ASSESSMENT: 1. Rule out lung cancer with metastasis to the bone and adrenal glands. 2. History of hypertension. 3. History of seizure disorder. 4. History of degenerative joint disease. 5. History of ongoing tobacco use. 6. History of chronic alcohol abuse. 7. History of profound weakness. PLAN: The patient should eventually be evaluated for malignancy. A couple of different ways to get a diagnosis. The best way might be biopsies of the bone or the adrenal glands, which would give us not only a diagnosis but a stage. This may very well be a small cell lung cancer. Additional recommendations and suggestions are forthcoming. Prognosis is poor nonetheless. Will continue to follow.
--- NOTE | 2017-04-19 17:40 | EEG ---
DATE OF SERVICE: 04/18/2017 INDICATION FOR EXAMINATION: This patient is a 66-year-old male being evaluated for generalized weakness. AGE: 66. EEG FINDINGS: A routine 21-channel awake digital EEG recording was accomplished utilizing the 10-20 international system with bipolar and referential montages. The background activity in the most alert resting state consists of a low to medium amplitude, fairly well-developed and well-sustained 6-7 Hz activity over the posterior head regions. This posterior rhythm attenuates to eye opening. There is a small amount of low amplitude 18-20 Hz beta activity seen maximally over the anterior head regions. Muscle and movement artifact was observed on a few occasions during the tracing. Hyperventilation was not performed. Photic stimulation at flash frequencies of 2-30 Hz produced a good symmetrical occipital driving response. No epileptiform discharges were seen. IMPRESSION: This EEG is mildly abnormal in a diffuse fashion due to slight slowing of the EEG background. The EEG failed to reveal any focal, lateralized or epileptiform abnormalities. Clinical correlation is recommended.
== END 2017-04-18 14:59 | disposition short-term general hospital (02) | DRG 552 ==
LOC: 4MS4W 19:24
PROVIDERS: ADMIT Hospitalist; ATTEND Hospitalist
DX: M50.01 Cervical disc disorder with myelopathy, high cervical region (principal); J90 Pleural effusion, not elsewhere classified; C79.51 Secondary malignant neoplasm of bone; C79.71 Secondary malignant neoplasm of right adrenal gland; C79.72 Secondary malignant neoplasm of left adrenal gland; E44.0 Moderate protein-calorie malnutrition; R18.8 Other ascites; G95.20 Unspecified cord compression; C34.90 Malignant neoplasm of unspecified part of unspecified bronchus or lung; E87.1 Hypo-osmolality and hyponatremia; Z68.1 Body mass index [BMI] 19.9 or less, adult; K92.2 Gastrointestinal hemorrhage, unspecified; I10 Essential (primary) hypertension; M48.02 Spinal stenosis, cervical region; J43.9 Emphysema, unspecified; E88.09 Other disorders of plasma-protein metabolism, not elsewhere classified; R15.9 Full incontinence of feces; E87.6 Hypokalemia; D50.9 Iron deficiency anemia, unspecified; G40.909 Epilepsy, unspecified, not intractable, without status epilepticus; M46.92 Unspecified inflammatory spondylopathy, cervical region; S49.91XA Unspecified injury of right shoulder and upper arm, initial encounter; F10.20 Alcohol dependence, uncomplicated; I67.9 Cerebrovascular disease, unspecified; N39.3 Stress incontinence (female) (male); M19.042 Primary osteoarthritis, left hand; M19.041 Primary osteoarthritis, right hand; M17.0 Bilateral primary osteoarthritis of knee; D72.829 Elevated white blood cell count, unspecified; M48.06 Spinal stenosis, lumbar region; R59.0 Localized enlarged lymph nodes; F17.210 Nicotine dependence, cigarettes, uncomplicated; M25.511 Pain in right shoulder; R29.6 Repeated falls; M25.461 Effusion, right knee; M25.561 Pain in right knee; Z71.3 Dietary counseling and surveillance; Z71.6 Tobacco abuse counseling; Z71.41 Alcohol abuse counseling and surveillance of alcoholic; Z82.49 Family history of ischemic heart disease and other diseases of the circulatory system; Z79.899 Other long term (current) drug therapy; Z79.51 Long term (current) use of inhaled steroids; Z83.79 Family history of other diseases of the digestive system
CPT/HCPCS: 70030; 70460; 71260; 72127; 72141; 72148; 74177; 78306; 80053; 80061; 80177; 82728; 83540; 83550; 83735; 84153; 84443; 85025; 85045; 93306; 93880; 95819